=== PATIENT | female | born 1955 | race Caucasian/White ===

== ENCOUNTER 2018-11-01 13:06 | Outpatient (CLI) | payer BC ==
[2018-11-01] MEDS ORDERED: PROG100C2 PO (13:44)
[2018-11-01] MEDS ORDERED: COMPOUND HORMONE TP (13:44)
[2018-11-01] MEDS ORDERED: RED600TA PO (13:44)
[2018-11-01] MEDS ORDERED: [UNRECOGNIZED DRUG - OTHER] PO (13:44)
[2018-11-01] MEDS ORDERED: [UNRECOGNIZED DRUG - OTHER] PO (13:44)
[2018-11-01] MEDS ORDERED: ACYC200C4 PO (13:44)
[2018-11-01] MEDS ORDERED: PRAS1TAB PO (13:44)
[2018-11-01] MEDS ORDERED: UBID1CAP43 PO (13:44)
[2018-11-01] MEDS ORDERED: CALC-534 PO (13:44)
[2018-11-01] MEDS ORDERED: CHOL5000 PO (13:44)
[2018-11-01] MEDS ORDERED: PANT40TA3 PO (13:44)
[2018-11-01] MEDS ORDERED: THYR97.5 PO (13:44)
== END 2018-11-01 23:59 | disposition home or self-care (01) ==
LOC: STAR 13:06
PROVIDERS: ATTEND Obstetrics & Gynecology
DX: Z01.818 Encounter for other preprocedural examination (principal); N93.9 Abnormal uterine and vaginal bleeding, unspecified; N95.0 Postmenopausal bleeding; Z88.0 Allergy status to penicillin
CPT/HCPCS: 93005

== ENCOUNTER 2018-11-08 09:24 | Day surgery (SDC) | payer BC ==
[~2018-11-08] VITALS: Ht 167.6 cm; Wt 79.5 kg
[~2018-11-08 09:24] MED LIST: ACYC200C4 PO; CALC-534 PO; CHOL5000 PO; COMPOUND HORMONE TP; PANT40TA3 PO; PRAS1TAB PO; PROG100C2 PO; RED600TA PO; THYR97.5 PO; UBID1CAP43 PO; [UNRECOGNIZED DRUG - OTHER] PO; [UNRECOGNIZED DRUG - OTHER] PO
[2018-11-08] MEDS ORDERED: VASOPRESSIN 20 UNIT/ML, 1ML ONE (09:43)
[2018-11-08] MEDS ORDERED: SODIUM CHLORIDE 0.9% 50 ML ONE (09:43)
[2018-11-08] MEDS ORDERED: LACTATED RINGERS 1,000 ML IV SCH (09:54)
[2018-11-08] MEDS ORDERED: FENTANYL PF 250 MCG/5ML ONE (11:12)
[2018-11-08] MEDS ORDERED: PROPOFOL 50 ML ONE (11:12)
[2018-11-08] MEDS ORDERED: MIDAZOLAM 1 MG/ML, 2ML ONE (11:12)
[2018-11-08] MEDS ORDERED: PROMETHAZINE 25 MG SUPP PR PRN (12:30)
[2018-11-08] MEDS ORDERED: DIPHENHYDRAMINE 50 MG/ML, 1ML IVPush PRN (12:30)
[2018-11-08] MEDS ORDERED: MORPHINE SULFATE 4 MG/ML, 1ML IVPush PRN (12:30)
[2018-11-08] MEDS ORDERED: PROMETHAZINE 12.5 MG SUPP PR PRN (12:30)
[2018-11-08] MEDS ORDERED: PROMETHAZINE 25 MG/ML, 1ML IV PRN (12:30)
[2018-11-08] MEDS ORDERED: ONDANSETRON ODT 8 MG PO PRN (12:30)
[2018-11-08] MEDS ORDERED: ONDANSETRON 2MG/ML, 2ML IV PRN (12:30)
[2018-11-08] MEDS ORDERED: MEPERIDINE/PF 25MG/0.5ML IVPush PRN (12:30)
[2018-11-08] MEDS ORDERED: MIDAZOLAM 1 MG/ML, 2ML IV PRN (12:30)
[2018-11-08] MEDS ORDERED: ACETAMINOPHEN 325 MG TABLET PO PRN (12:30)
[2018-11-08] MEDS ORDERED: FENTANYL PF 100 MCG/2ML IV PRN (12:30)
[2018-11-08] MEDS ORDERED: EPHEDRINE 50 MG/ML, 1ML IM PRN (12:30)
[2018-11-08] MEDS ORDERED: OXYcodone 5 MG/5 ML ORAL.SOL UDC PO PRN (12:30)
[2018-11-08] MEDS ORDERED: ACETAMINOPHEN 325 MG TABLET ONE (12:40)
[2018-11-08] MEDS ORDERED: PROPOFOL 10 MG/ML, 20ML ONE (14:41)
[2018-11-08] MEDS ORDERED: DEXAMETHASONE 4 MG/ML, 1ML ONE (14:41)
[2018-11-08] MEDS ORDERED: ONDANSETRON 2MG/ML, 2ML ONE (14:41)
== END 2018-11-08 15:05 | disposition home or self-care (01) ==
LOC: OUT 09:24
PROVIDERS: ATTEND Obstetrics & Gynecology
DX: N84.0 Polyp of corpus uteri (principal); N95.0 Postmenopausal bleeding; Z88.0 Allergy status to penicillin; Z88.8 Allergy status to other drugs, medicaments and biological substances
CPT/HCPCS: 58558; 88305; J1100; J2250; J2405; J2704; J3010; J7120